=== PATIENT | male | born 1990 | race Caucasian/White ===

== ENCOUNTER 2017-07-01 05:27 | Day surgery (SDC) | payer OTHER ==
[2017-07-01] VITALS (13 sets, daily range): BP systolic 99–117; BP diastolic 48–56; PULSE 57–88; RESP 12–25; Ht 167.6 cm; Wt 60.5 kg
[~2017-07-01] VITALS: Ht 167.6 cm; Wt 60.5 kg
[2017-07-01] MEDS ORDERED: CEFAZOLIN 1 GM INJ ONE (07:00)
[2017-07-01] MEDS ORDERED: PROPOFOL 200 MG INJ ONE (07:00)
[2017-07-01] MEDS ORDERED: FAMOTIDINE 20 MG INJ ONE (07:00)
--- NOTE | 2017-07-01 07:27 | HPN ---
Date/Time of Note Date/Time of Note DATE: 07/01/17 TIME: 07:26 Interval H&P Admission Note Pt. seen H&P reviewed: No system changes CAMERON OSHEA MD Jul 01, 2017 07:27
[2017-07-01] MEDS ORDERED: MIDAZOLAM 1 MG/ML 2 ML INJ ONE (07:33)
[2017-07-01] MEDS ORDERED: LIDOCAINE 2% (SDV) 5 ML INJ ONE (07:34)
[2017-07-01] MEDS ORDERED: PROPOFOL 20 ML ONE (07:34)
[2017-07-01] MEDS ORDERED: LIDOCAINE 1% (MPF) 30 ML INJ ONE (07:38)
[2017-07-01] MEDS ORDERED: BUPIVACAINE 0.5% (SDV) 30 ML INJ ONE (07:38)
[2017-07-01] MEDS ORDERED: FENTAnyl 50 MCG/ML VIAL ONE (07:40)
[2017-07-01] MEDS ORDERED: ONDANSETRON 4 MG INJ ONE (07:40)
[2017-07-01] MEDS ORDERED: DEXAMETHASONE 4 MG/ML 1 ML INJ ONE (07:40)
[2017-07-01] MEDS ORDERED: NEOMYC/POLYMYX/BACIT 30 GM OINT ONE (08:54)
[2017-07-01] MEDS ORDERED: PROCHLORPERAZINE 10 MG INJ IV PRN (09:30)
[2017-07-01] MEDS ORDERED: ONDANSETRON 4 MG INJ IV PRN (09:30)
[2017-07-01] MEDS ORDERED: HYDROmorphONE (0.2 MG/ML) 10ML SYG IV PRN ×3 (09:30)
[2017-07-01] MEDS ORDERED: MEPERIDINE 25 MG INJ IV PRN (09:30)
[2017-07-01] MEDS ORDERED: DIPHENHYDRAMINE 50 MG INJ IV PRN (09:30)
[2017-07-01] MEDS ORDERED: FENTAnyl 50 MCG/ML VIAL IV PRN ×3 (09:30)
[2017-07-01] MEDS ORDERED: OXYCODONE/ACETAMINOPHEN (5/325) TAB PO PRN ×2 (09:30)
--- NOTE | 2017-07-01 09:36 | SIPON ---
Date/Time of Note Date/Time of Note DATE: 07/01/17 TIME: 09:31 Operative Report Preoperative Diagnosis Laceration Rt Extensor Indicis Laceration EDC to Index Postoperative Diagnosis Same Partial Laceration Extensor to Long Finger Operation/Procedure Performed Repair Rt Extensor Indicis Repair EDC to Index Repair EDC to Long SAS Surgeon see signature line orthopedic assistant None Anesthesia: general Estimated blood loss: none Transfusion Required none Specimen None Grafts/Implants none Complications none CAMERON OSHEA MD Jul 01, 2017 09:36
[2017-07-01] MEDS ORDERED: HYDROCODONE/APAP (5/325) TAB PO PRN (10:00)
[2017-07-01] MEDS ORDERED: NACL 0.9% 3 ML SYG IV SCH (10:00)
[2017-07-01] MEDS ORDERED: ACETAMINOPHEN 500 MG TAB PO PRN (10:00)
--- NOTE | 2017-07-01 11:08 | OPR ---
DATE OF OPERATION: 07/01/2017 SURGEON: Ryan Fisher MD. PREOPERATIVE DIAGNOSES: 1. Laceration right extensor indices. 2. Laceration right extensor digitorum communis to the index finger. POSTOPERATIVE DIAGNOSES: 1. Laceration right extensor indices. 2. Laceration right extensor digitorum communis to the index finger. 3. Partial laceration extensor digitorum communis to long finger. OPERATION PERFORMED: 1. Repair of partial laceration right long finger extensor tendon. 2. Repair of right index extensor indices. 3. Repair right index extensor digitorum communis to index finger. 4. Application of short-arm splint. OPERATIVE PROCEDURE: With the patient supine on the operating room table, general anesthesia was begun. Ancef 2 grams IV was administered and the right upper extremity from below the tourniquet was prepared and draped in a sterile fashion. The Esmarch bandage was applied and the tourniquet inflated to 250 mmHg. The previously placed sutures on the transverse laceration of the dorsum of the wrist were removed. The wound was extended proximally and distally. Flaps were developed. The 2 extensor tendons to the index finger were noted to be completely divided and retracted. There was a partial laceration of the extensor to the long finger. Sutures of #3-0 fiber wire were used in a modified Macias fashion to repair the index and long finger extensor tendons. Interrupted sutures were used to repair the long finger extensor tendon. The repairs were enhanced with #6-0 Prolene in a circumferential epitendinous fashion. The wound was irrigated with saline. sutures of the #5-0 Ethilon were used to approximate the skin. A sterile hand dressing and short arm splint maintaining the wrist in 30 degree of extension and the index finger in full extension at the MP joint. The patient tolerated the procedure, and left in satisfactory condition. Dictated By: Ryan Fisher MD /[email or web address] /Document#: [id number] TOYIN
== END 2017-07-01 11:15 | disposition home or self-care (01) ==
LOC: SDS 05:27
PROVIDERS: ATTEND Orthopaedic Surgery Hand Surgery
DX: S66.320A Laceration of extensor muscle, fascia and tendon of right index finger at wrist and hand level, initial encounter (principal); S66.312A Strain of extensor muscle, fascia and tendon of right middle finger at wrist and hand level, initial encounter; X58.XXXA Exposure to other specified factors, initial encounter; Y93.9 Activity, unspecified; Y99.9 Unspecified external cause status; Y92.9 Unspecified place or not applicable
CPT/HCPCS: 25270; J0690; J1100; J2250; J2405; J3010; Z7512; Z7610